=== PATIENT | female | born 1960 ===

== ENCOUNTER 2021-06-25 08:53 | Day surgery (SDC) | payer OTHER ==
[2021-06-25] MEDS ORDERED: fentaNYL 100 MCG/2 ML SDV ONE (09:04)
[2021-06-25] MEDS ORDERED: Midazolam 1 MG/ML 2 ML SDV ONE (09:04)
[2021-06-25] MEDS ORDERED: Propofol 200 MG/20 ML SDV ONE (09:04)
[2021-06-25] MEDS ORDERED: Glycopyrrolate 0.2 MG/ML 2 ML SDV IVPUSH ONE (10:00)
[2021-06-25] MEDS ORDERED: Lactated Ringers 1,000 ML IV ONE (10:00)
== END 2021-06-25 13:24 | disposition home or self-care (01) ==
LOC: JP.SDS 08:53
PROVIDERS: ATTEND Surgery
DX: K20.90 Esophagitis, unspecified without bleeding (principal); K25.9 Gastric ulcer, unspecified as acute or chronic, without hemorrhage or perforation; E66.01 Morbid (severe) obesity due to excess calories; R13.10 Dysphagia, unspecified; I10 Essential (primary) hypertension; E78.5 Hyperlipidemia, unspecified; E11.9 Type 2 diabetes mellitus without complications; G47.33 Obstructive sleep apnea (adult) (pediatric); F17.200 Nicotine dependence, unspecified, uncomplicated; Z88.8 Allergy status to other drugs, medicaments and biological substances; Z98.84 Bariatric surgery status; Z68.41 Body mass index [BMI] 40.0-44.9, adult; Z01.812 Encounter for preprocedural laboratory examination; Z20.822 Contact with and (suspected) exposure to COVID-19
CPT/HCPCS: 43235; 87635; J2250; J2704; J3010; J7120; U0002